=== PATIENT | female | born 1990 | race Two or more races ===

== ENCOUNTER 2024-11-19 17:12 | Emergency (ER) | payer OTHER ==
[~2024-11-19] VITALS: Ht 160 cm; Wt 59.0 kg
[2024-11-19 17:41] VITALS: BP 119/86; O2SAT 99
[2024-11-19] MEDS ORDERED: AMOX1TAB5 PO (17:52)
== END 2024-11-19 18:28 | disposition home or self-care (01) ==
LOC: ER 17:13
DX: R53.81 Other malaise (principal); W55.03XA Scratched by cat, initial encounter